=== PATIENT | female | born 2000 | race Caucasian/White ===

== ENCOUNTER 2022-08-15 04:52 | Emergency (ER) | payer BC, SELFPAY ==
[2022-08-15 05:01] VITALS: BP 93/59; PULSE 89; RESP 16; TEMP 36.6; O2SAT 98; BMI 25.1
--- NOTE | 2022-08-15 05:15 | CRLHL7_ITS ---
For Patients: As a result of the Cures Act, medical imaging exams and procedure reports are released immediately into your electronic medical record. You may view this report before your referring provider. If you have questions, please contact your health care provider. Indication: Sprain, injury Technique: Right ankle 3 views. Comparison: None. Findings: Bones: Alignment is normal. No fractures or bone lesions. Joint spaces: Unremarkable. Soft tissues: Unremarkable. Impression: No evidence of fracture or dislocation of the right ankle. Dictated by Vipul Islas MD @ 08/15/2022 5:53:05 AM (Electronically Signed)
--- NOTE | 2022-08-15 05:17 | ED.GENADULT ---
HPI - General Adult General Chief complaint: Extremity Pain/Injury, Lower Stated complaint: sprained right ankle Time Seen by Provider: 08/15/22 05:07 Source: patient Limitations: no limitations History of Present Illness HPI narrative: 21-year-old female arrives via campus security for ankle injury. Patient was ?hopping around the campus lobby like a rabbit? last night about 10 hours ago when she felt a pop in her ankle. Had some mild pain. Realize she needed to work on SA and was able to go back to her room. She was able to stand and bear weight without difficulty. She did complete her SA, did not take any medication and did go to bed. She awoke with pain in the right ankle at around 4:15 a.m. this morning. She reports that when she went to stand up the pain increased markedly causing some nausea slight lightheadedness. She hopped around after she got out of bed and sat herself down on a gra bag instead and yelled for her roommate. Roommate called campus security who recommended she be evaluated. She technically can bear weight on the ankle but it is painful. Pain is greatest at the right lateral malleolus and slightly superior to this. Denies prior significant fracture or injury, no prior surgeries. She did take 400 mg of ibuprofen this morning with no significant relief. No numbness, no swelling. Denies any other injuries. Past medical history she states is benign no major long-term health problems. Denies any use of prescription medications, denies drug allergies. Socially denies intoxication or tobacco use. ROS is notable for the generalized and musculoskeletal symptoms as above, otherwise denies times 12 systems. Related Data Home Medications Medication Instructions Recorded Confirmed No Known Home Medications 08/15/22 08/15/22 Allergies Allergy/AdvReac Type Severity Reaction Status Date / Time No Known Drug Allergies Allergy Verified 08/15/22 05:05 [facility] Social History Smoking Status: Never smoker Do you use any of these nicotine containing products: None How often do you have a drink containing alcohol: monthly or less AUDIT-C Alcohol total score: 1 Non-prescribed substance use: denies use Exam Const: Vital Signs, click to edit/add: Vital Signs - 24 hr 08/15/22 05:01 Temperature 97.8 F Pulse Rate [Left P ulse Oximeter] 89 Respiratory Rate 16 Blood Pressure [Ri ght Upper Arm] 93/59 L Pulse Oximetry 98 Oxygen Delivery Me thod Room Air Documenting provider has reviewed patient's vital signs: yes General appearance: well kempt Other: Pain seems out of proportion to exam. Anxious, refuses to move the ankle despite the fact that there is no visible deformity, swelling, bruising. HENMT: Common normals: normocephalic Head and scalp: normocephalic Mouth: oral and palatal mucosa normal Eye: Other: Eyes appear normal with normal visual tracking and gaze Resp: Common normals: normal respiratory effort Effort & inspection: able to speak in complete sentences Cardio: Common normals: regular rate, regular rhythm and peripheral pulses 2+ throughout Rate: regular rate Rhythm: regular rhythm Peripheral pulses: pulses 2+ throughout Extremity: Other: Left ankle and foot with normal range of motion, normal strength and sensation, no point bony tenderness. The right foot has no deformity, normal range of motion, no point bony tenderness. The right ankle has exquisite observed tenderness inferior and posterior true lateral malleolus but not on the malleolus itself. There is no swelling, no effusion, no bruising. She can not ARDS it significantly. Passive range of motion is completely normal. She axes though it is very difficult to reina and invert the foot but again passive range of motion is completely normal. Toes and nails are normal as well. Normal pedal pulses and capillary refill Neuro: Speech: speech normal Motor exam: no tremor noted and no movement abnormalities noted Psych: Common normals: thought process normal Appearance: well kempt Activity/motor behavior: appropriate eye contact Thought process: normal thought process Insight: insight good Judgement: judgment good Skin: Common normals: no rashes or lesions noted General skin exam: no rashes or lesions noted Course Vital Signs Vital signs: Initial Vital Signs Temperature 97.8 F 08/15/22 05:01 Temperature Source Temporal Artery Scan 08/15/22 05:01 Pulse Rate 89 08/15/22 05:01 Respiratory Rate 16 08/15/22 05:01 Blood Pressure 93/59 L 08/15/22 05:01 Blood Pressure Mean 70 08/15/22 05:01 Blood Pressure Position Sitting 08/15/22 05:01 Pulse Oximetry 98 08/15/22 05:01 Oxygen Delivery Method 08/15/22 05:01 Vital Signs Temperature 97.8 F 08/15/22 05:01 Pulse Rate 89 08/15/22 05:01 Respiratory Rate 16 08/15/22 05:01 Blood Pressure 93/59 L 08/15/22 05:01 Pulse Oximetry 98 08/15/22 05:01 Oxygen Delivery Method 08/15/22 05:01 Temperature 97.8 F 08/15/22 05:01 Pulse Rate 89 08/15/22 05:01 Respiratory Rate 16 08/15/22 05:01 Blood Pressure 93/59 L 08/15/22 05:01 Pulse Oximetry 98 08/15/22 05:01 Oxygen Delivery Method 08/15/22 05:01 Medical Decision Making MDM Narrative Medical decision making narrative: Differential diagnosis including fracture, sprain. No signs of neurovascular injury. Uneven quite meet criteria for [place] rules but pain seems very out of proportion to physical findings, because of this x-rays ordered. Tylenol 1000 mg p.o. x1 given. Update: X-rays reviewed with patient. Per my interpretation, no signs of fracture, effusion or any other worrisome signs. Recommended ankle brace. Given a pair of crutches to use until she feels like she can bear weight. She is cleared for all duties including weight-bearing at this time, wean off of the crutches in a few days as she feels better. Office visit in 2 weeks if not improving to her satisfaction in the clinic. Discharge Plan Discharge Clinical Impression: Mild sprain of right ankle Patient Disposition: Home, Self-Care Condition: Stable Instructions: Ankle Sprain (ED) Additional Instructions: You have a mild sprain to the ankle, no signs of ligament, tendon or bone injury. For pain, you may use ibuprofen 600 mg which is 3 tablets every 6 hours as needed for pain and/or Tylenol 1000 mg every 6 hours. This is 3 tablets of Tylenol at a time. Apply ice to the most painful area for 10 minutes every 4 hours while awake. We have given you a brace to use help support the ankle but it is not necessary that you wear it. You have been given crutches but again you are allowed to bear weight. Use the crutches for the next few days until you are feeling like you can support your own weight. You have no restrictions on activities, simply to comfort. You may return to class today. If your ankle is still bothersome in 2 weeks, make an appointment to be evaluated in the clinic. Activity Level: Activity as Tolerated Discharge Diet: Regular Prescriptions: No Action No Known Home Medications Stand Alone Forms: [employer] Info Instructions
[2022-08-15] MEDS: ACETAMINOPHEN 500 MG TABLET 1000 MG PO (05:18)
== END 2022-08-15 05:52 | disposition home or self-care (01) ==
LOC: ED 05:50
PROVIDERS: Emergency Provider Family Medicine
DX: S93.401A Sprain of unspecified ligament of right ankle, initial encounter (principal); X50.1XXA Overexertion from prolonged static or awkward postures, initial encounter
CPT/HCPCS: 73610; 99282; 99283; A9270

== ENCOUNTER 2023-12-02 15:10 | Outpatient (CLI) | payer BC, SELFPAY ==
--- OUTSIDE RECORDS SUMMARY | 2023-12-05 15:45 | XMS_ITS | Clinical Summary ---
Author Name Unknown Organization [facility] Address [address] [place] [address] Care Team Providers Care Special Warfare Combatant Crewman Name Role Phone Jewels Guadarrama MD Primary Care Provider +1- [phone] Allergies No known active allergies Medications Medication Sig Dispensed Refills Start Date End Date Status Multiple Vitamins-Calcium (ONE-A-DAY WOMENS ORAL)Indications:Vitami n D deficiency,Dietary restriction Give by mouth. 0 Active FLUoxetine (PROZAC) PO CAP 20 mgIndications:Anxiety and depression Give 1 Cap by mouth daily. 90 Cap 2 10/25/2020 Active Active Problems Problem Noted Date Diagnosed Date Family history of nephrolithiasis 08/01/2015 [place]-Schlatter's disease 10/21/2012 Foot pain, left 10/21/2012 Resolved [...] 10/21/2012 Vision Completed 10/25/2020, 10/17/2018 Care Teams Special Warfare Combatant Crewman Relationship Specialty Start Date End Date Jewels Guadarrama MD PCP - General Pediatrics 09/01/13
== END 2023-12-02 15:11 | disposition home or self-care (01) ==
LOC: AMB 12-05 15:43
PROVIDERS: Visit Provider Student in an Organized Health Care Education/Training Program
DX: S99.912A Unspecified injury of left ankle, initial encounter (principal); W17.89XA Other fall from one level to another, initial encounter; Y93.59 Activity, other involving other sports and athletics played individually; Y92.39 Other specified sports and athletic area as the place of occurrence of the external cause
CPT/HCPCS: A0425; A0427

== ENCOUNTER 2023-12-02 15:56 | Emergency (ER) | payer BC, SELFPAY ==
[2023-12-02] VITALS (42 sets, daily range): BP systolic 103–138; BP diastolic 60–99; PULSE 62–79; RESP 11–27; TEMP 36.6; O2SAT 95–100; BMI 28.2; BMI 25.0
--- NOTE | 2023-12-02 | XR_ITS ---
Patient: VIDA [facility] Facility:?[facility] Patient ID:?[id number] Site Patient ID:?[id number]. Site :?[id number] Study:?XRay-Extremity ANKLE 2 VIEWS-12/02/2023 4:36:03 PM Ordering Physician:[place] Final Report: INDICATION: Fell from 10+ feet. TECHNIQUE: Left ankle 2 view. COMPARISON: None. FINDINGS: There is an acute oblique fracture of the mid fibular diaphysis with apex medial and anterior angulation. The distal fracture fragment is displaced anteriorly by approximately 6 mm. There is also an acute displaced fracture of the posterior malleolus. The tibia is displaced anterior and medially relative to the talus. Mild soft tissue swelling. IMPRESSION: Acute fractures of the mid fibular diaphysis and posterior malleolus with dislocation of the tibiotalar joint. Dictated by Yi Canales MD @ 12/02/2023 7:45:59 PM Signed by:?Yi Canales MD @12/02/2023 7:45:59 PM (Electronic Signature)
--- NOTE | 2023-12-02 16:04 | XR_ITS ---
Patient: VIDA [place] [place] Facility:?[facility] Patient ID:?[id number] Site Patient ID:?[id number]. Site :?2002 Study:?XRay-Extremity Left ANKLE 2 VIEWS POST REDUCTION TTA-12/02/2023 4:36:44 PM Ordering Physician:[place] Final Report: INDICATION: Fell from 10+ feet. Postreduction. TECHNIQUE: Left ankle 2 view. COMPARISON: Earlier same day left ankle radiographs. FINDINGS: Again seen are acute fractures of the mid fibular diaphysis and posterior malleolus which are now in near anatomic alignment. Reduction of the previously seen tibiotalar dislocation. Mild soft tissue swelling. IMPRESSION: 1. Near anatomic alignment of the mid fibular and posterior malleolar fractures. 2. Reduction of the previously seen tibiotalar dislocation. Dictated by Yi Canales MD @ 12/02/2023 7:48:07 PM Signed by:?Yi Canales MD @12/02/2023 7:48:07 PM (Electronic Signature)
[2023-12-02] MEDS: 0.9 % SODIUM CHLORIDE 1000 ml 1,000 ML IV (16:15)
--- NOTE | 2023-12-02 16:23 | ED.TRAUMA ---
HPI - Trauma General Date Seen: 12/02/23 <Abdiel Pang MD - Last Filed: 12/02/23 20:51> Chief Complaint: Extremity Pain/Injury, Lower <Abdiel Pang MD - Last Filed: 12/02/23 20:51> Stated Complaint: L leg injury <Abdiel Pang MD - Last Filed: 12/02/23 20:51> Time Seen by Provider: 12/02/23 16:23 <Abdiel Pang MD - Last Filed: 12/02/23 20:51> Source: patient and EMS <Abdiel Pang MD - Last Filed: 12/02/23 20:51> Mode of arrival: EMS <Abdiel Pang MD - Last Filed: 12/02/23 20:51> Limitations: no limitations <Abdiel Pang MD - Last Filed: 12/02/23 20:51> On Arrival Trauma Team Activation: Yes <Abdiel Pang MD - Last Filed: 12/02/23 20:51> History of Present Illness HPI narrative: Patient is a very nice 23-year-old female who was rock climbing at [place] when she fell down landing on her feet, approximately 15 ft but over on her left ankle. Her left ankle was clearly to form, ambulance was called and brought her here. They gave her 10 mg of morphine in route, she has no other complaints of upper leg discomfort, abdominal discomfort pelvic discomfort chest head or neck issues. The pulse in her left foot was a little weaker according to EMS. She was placed in a splint, IV access was started and brought here. She last ate approximately at 11:30 a.m. which gives her a 4 hour window. She has had previous wisdom teeth removal with medication but no other significant surgeries. <Abdiel Pang MD - Last Filed: 12/02/23 20:51> MD complaint: fall <Abdiel Pang MD - Last Filed: 12/02/23 20:51> Onset (ago): minute(s) <Abdiel Pang MD - Last Filed: 12/02/23 20:51> Loss of Consciousness: no <Abdiel Pagn MD - Last Filed: 12/02/23 20:51> Location: other <Abdiel Pang MD - Last Filed: 12/02/23 20:51> Location - Extremities: Left: ankle <Abdiel Pang MD - Last Filed: 12/02/23 20:51> Severity: severe <Abdiel Pang MD - Last Filed: 12/02/23 20:51> Context: fall <Abdiel Pang MD - Last Filed: 12/02/23 20:51> Associated symptoms: denies other symptoms <Abdiel Pang MD - Last Filed: 12/02/23 20:51> Treatments prior to arrival: IV <Abdiel Pang MD - Last Filed: 12/02/23 20:51> Related Data Home Medications: Previous Rx's Medication Instructions Recorded ondansetron HCl 4 mg tablet 4 mg PO Q6H #10 tabs 11/30/22 <Abdiel Pang MD - Last Filed: 12/02/23 20:51> Allergies/Adverse Reactions: Allergies Allergy/AdvReac Type Severity Reaction Status Date / Time gluten AdvReac Intermediate Uncoded 11/30/22 09:56 <Abdiel Pang MD - Last Filed: 12/02/23 20:51> Review of Systems Status of ROS: Reports: 10 or more systems reviewed and unremarkable except as noted in History and below <Abdiel Pang MD - Last Filed: 12/02/23 20:51> [facility] Social History: Social History Smoking Status: Never smoker Do you use any of these nicotine containing products: None How often do you have a drink containing alcohol: monthly or less AUDIT-C Alcohol total score: 1 Non-prescribed substance use: denies use <Abdiel Pang MD - Last Filed: 12/02/23 20:51> Exam Narrative: Exam Narrative: Trauma team activation is done, and stabilization room 1, she is brought over from the [facility], her left ankle is in a pillow splint clearly deviated, with her foot valgus deviated to the left. She is able to move her toes she appears to have good cap refill but she has a weak DP pulse. Knee moves knee moves well hip moves well, there is no rotation notable, her pelvis is normal stable to rocking, her abdomen is soft there is no guarding no organomegaly, no tenderness is noted over her T-spine L-spine on palpation percussion, her chest is good air entry bilaterally, palpated and otherwise normal. With no subcutaneous air, heart sounds are normal, her neck has excellent range of motion in flexion extension lateral flexion rotation. Her pupils equal round reactive to light, GCS is 15/15, alert oriented x3, no blood from her urine no blood within her hair. <Abdiel Pang MD - Last Filed: 12/02/23 20:51> Const: Vital Signs, click to edit/add: Vital Signs - 24 hr 12/02/23 16:04 12/02/23 16:05 12/02/23 16:05 Temperature 97.9 F Pulse Rate 73 62 Pulse Rate [Left D orsalis Pedis] Pulse Rate [Pulse Oximeter] 74 Respiratory Rate 18 Blood Pressure 125/82 Blood Pressure [Ri ght Upper Arm] 125/82 Pulse Oximetry 98 99 [facility] 12/02/23 16:10 12/02/23 16:12 12/02/23 16:12 Temperature Pulse Rate 74 74 Pulse Rate [Left D orsalis Pedis] Pulse Rate [Pulse Oximeter] Respiratory Rate 17 12 12 Blood Pressure 120/99 H 120/99 H Blood Pressure [Ri ght Upper Arm] Pulse Oximetry 100 100 [facility] 12/02/23 16:14 12/02/23 16:15 12/02/23 16:17 Temperature Pulse Rate 76 75 67 Pulse Rate [Left D orsalis Pedis] Pulse Rate [Pulse Oximeter] Respiratory Rate 22 27 H Blood Pressure 138/91 H Blood Pressure [Ri ght Upper Arm] Pulse Oximetry 100 98 [facility] 12/02/23 16:20 12/02/23 16:22 12/02/23 16:28 Temperature Pulse Rate 70 68 Pulse Rate [Left D orsalis Pedis] Pulse Rate [Pulse Oximeter] Respiratory Rate 17 16 15 Blood Pressure 116/67 103/64 Blood Pressure [Ri ght Upper Arm] Pulse Oximetry 100 99 [facility] 12/02/23 16:30 12/02/23 16:31 12/02/23 16:31 Temperature Pulse Rate 72 Pulse Rate [Left D orsalis Pedis] 63 Pulse Rate [Pulse Oximeter] 62 Respiratory Rate 15 16 Blood Pressure Blood Pressure [Ri ght Upper Arm] 119/60 Pulse Oximetry [address] [facility] Room Air 12/02/23 16:32 12/02/23 16:37 12/02/23 16:37 Temperature Pulse Rate 69 72 Pulse Rate [Left D orsalis Pedis] Pulse Rate [Pulse Oximeter] Respiratory Rate 16 27 H Blood Pressure 119/80 114/90 H Blood Pressure [Ri ght Upper Arm] Pulse Oximetry [address] [facility] Room Air 12/02/23 16:38 12/02/23 16:40 12/02/23 16:42 Temperature Pulse Rate 65 72 Pulse Rate [Left D orsalis Pedis] Pulse Rate [Pulse Oximeter] Respiratory Rate 17 19 23 Blood Pressure 111/78 Blood Pressure [Ri ght Upper Arm] Pulse Oximetry [address] [facility] 12/02/23 16:45 12/02/23 16:47 12/02/23 16:50 Temperature Pulse Rate 79 71 Pulse Rate [Left D orsalis Pedis] Pulse Rate [Pulse Oximeter] Respiratory Rate 15 15 17 Blood Pressure 123/64 Blood Pressure [Ri ght Upper Arm] Pulse Oximetry [address] [facility] 12/02/23 16:52 12/02/23 16:57 12/02/23 17:00 Temperature Pulse Rate 65 69 71 Pulse Rate [Left D orsalis Pedis] Pulse Rate [Pulse Oximeter] Respiratory Rate 21 14 Blood Pressure 115/81 113/70 Blood Pressure [Ri ght Upper Arm] Pulse Oximetry [address] [facility] 12/02/23 17:02 12/02/23 17:07 12/02/23 17:10 Temperature Pulse Rate 66 71 Pulse Rate [Left D orsalis Pedis] Pulse Rate [Pulse Oximeter] Respiratory Rate 11 L 14 Blood Pressure 115/77 113/75 Blood Pressure [Ri ght Upper Arm] Pulse Oximetry [address] [facility] 12/02/23 17:15 12/02/23 17:20 12/02/23 17:30 Temperature Pulse Rate 78 Pulse Rate [Left D orsalis Pedis] Pulse Rate [Pulse Oximeter] Respiratory Rate 21 22 21 Blood Pressure Blood Pressure [Ri ght Upper Arm] Pulse Oximetry 95 96 97 Oxygen Delivery [facility] 12/02/23 17:32 12/02/23 17:40 12/02/23 17:50 Temperature Pulse Rate Pulse Rate [Left D orsalis Pedis] Pulse Rate [Pulse Oximeter] Respiratory Rate 23 16 22 Blood Pressure Blood Pressure [Ri ght Upper Arm] Pulse Oximetry 97 98 96 Oxygen Delivery [facility] 12/02/23 18:00 12/02/23 18:02 12/02/23 18:10 Temperature Pulse Rate Pulse Rate [Left D orsalis Pedis] Pulse Rate [Pulse Oximeter] Respiratory Rate 22 13 21 Blood Pressure Blood Pressure [Ri ght Upper Arm] Pulse Oximetry 97 97 96 Oxygen Delivery [facility] 12/02/23 18:20 12/02/23 18:30 12/02/23 18:32 Temperature Pulse Rate Pulse Rate [Left D orsalis Pedis] Pulse Rate [Pulse Oximeter] Respiratory Rate 18 21 14 Blood Pressure Blood Pressure [Ri ght Upper Arm] Pulse Oximetry 96 96 97 Oxygen Delivery [facility] 12/02/23 18:40 12/02/23 18:50 12/02/23 19:00 Temperature Pulse Rate Pulse Rate [Left D orsalis Pedis] Pulse Rate [Pulse Oximeter] Respiratory Rate Blood Pressure Blood Pressure [Ri ght Upper Arm] Pulse Oximetry 97 96 97 Oxygen Delivery [facility] 12/02/23 19:02 Temperature Pulse Rate Pulse Rate [Left D orsalis Pedis] Pulse Rate [Pulse Oximeter] Respiratory Rate Blood Pressure Blood Pressure [Ri ght Upper Arm] Pulse Oximetry 97 Oxygen Delivery [facility] <Abdiel Pang MD - Last Filed: 12/02/23 20:51> Vital Signs, click to edit/add: Vital Signs - 24 hr 12/02/23 16:04 12/02/23 16:05 12/02/23 16:05 Temperature 97.9 F Pulse Rate 73 62 Pulse Rate [Left D orsalis Pedis] Pulse Rate [Pulse Oximeter] 74 Respiratory Rate 18 Blood Pressure 125/82 Blood Pressure [Ri ght Upper Arm] 125/82 Pulse Oximetry 98 99 99 Oxygen Delivery [facility] Room Air 12/02/23 16:10 12/02/23 16:12 12/02/23 16:12 Temperature Pulse Rate 74 74 Pulse Rate [Left D orsalis Pedis] Pulse Rate [Pulse Oximeter] Respiratory Rate 17 12 12 Blood Pressure 120/99 H 120/99 H Blood Pressure [Ri ght Upper Arm] Pulse Oximetry 100 [address] [facility] 12/02/23 16:14 12/02/23 16:15 12/02/23 16:17 Temperature Pulse Rate 76 75 67 Pulse Rate [Left D orsalis Pedis] Pulse Rate [Pulse Oximeter] Respiratory Rate 22 27 H Blood Pressure 138/91 H Blood Pressure [Ri ght Upper Arm] Pulse Oximetry [address] [facility] 12/02/23 16:20 12/02/23 16:22 12/02/23 16:28 Temperature Pulse Rate 70 68 Pulse Rate [Left D orsalis Pedis] Pulse Rate [Pulse Oximeter] Respiratory Rate 17 16 15 Blood Pressure 116/67 103/64 Blood Pressure [Ri ght Upper Arm] Pulse Oximetry [address] [facility] 12/02/23 16:30 12/02/23 16:31 12/02/23 16:31 Temperature Pulse Rate 72 Pulse Rate [Left D orsalis Pedis] 63 Pulse Rate [Pulse Oximeter] 62 Respiratory Rate 15 16 Blood Pressure Blood Pressure [Ri ght Upper Arm] 119/60 Pulse Oximetry [address] [facility] Room Air 12/02/23 16:32 12/02/23 16:37 12/02/23 16:37 Temperature Pulse Rate 69 72 Pulse Rate [Left D orsalis Pedis] Pulse Rate [Pulse Oximeter] Respiratory Rate 16 27 H Blood Pressure 119/80 114/90 H Blood Pressure [Ri ght Upper Arm] Pulse Oximetry 99 [address] [facility] Room Air 12/02/23 16:38 12/02/23 16:40 12/02/23 16:42 Temperature Pulse Rate 65 72 Pulse Rate [Left D orsalis Pedis] Pulse Rate [Pulse Oximeter] Respiratory Rate 17 19 23 Blood Pressure 111/78 Blood Pressure [Ri ght Upper Arm] Pulse Oximetry [address] [facility] 12/02/23 16:45 12/02/23 16:47 12/02/23 16:50 Temperature Pulse Rate 79 71 Pulse Rate [Left D orsalis Pedis] Pulse Rate [Pulse Oximeter] Respiratory Rate 15 15 17 Blood Pressure 123/64 Blood Pressure [Ri ght Upper Arm] Pulse Oximetry 100 100 100 Oxygen Delivery [facility] 12/02/23 16:52 12/02/23 16:57 12/02/23 17:00 Temperature Pulse Rate 65 69 71 Pulse Rate [Left D orsalis Pedis] Pulse Rate [Pulse Oximeter] Respiratory Rate 21 14 Blood Pressure 115/81 113/70 Blood Pressure [Ri ght Upper Arm] Pulse Oximetry 99 100 99 Oxygen Delivery [facility] 12/02/23 17:02 12/02/23 17:07 12/02/23 17:10 Temperature Pulse Rate 66 71 Pulse Rate [Left D orsalis Pedis] Pulse Rate [Pulse Oximeter] Respiratory Rate 11 L 14 Blood Pressure 115/77 113/75 Blood Pressure [Ri t Upper Arm] Pulse Oximetry 98 96 96 Oxygen Delivery [facility] 12/02/23 17:15 12/02/23 17:20 12/02/23 17:30 Temperature Pulse Rate 78 Pulse Rate [Left D orsalis Pedis] Pulse Rate [Pulse Oximeter] Respiratory Rate 21 22 21 Blood Pressure Blood Pressure [Ri t Upper Arm] Pulse Oximetry 95 96 97 Oxygen Delivery [facility] 12/02/23 17:32 12/02/23 17:40 12/02/23 17:50 Temperature Pulse Rate Pulse Rate [Left D orsalis Pedis] Pulse Rate [Pulse Oximeter] Respiratory Rate 23 16 22 Blood Pressure Blood Pressure [Ri t Upper Arm] Pulse Oximetry 97 98 96 Oxygen Delivery [facility] 12/02/23 18:00 12/02/23 18:02 12/02/23 18:10 Temperature Pulse Rate Pulse Rate [Left D orsalis Pedis] Pulse Rate [Pulse Oximeter] Respiratory Rate 22 13 21 Blood Pressure Blood Pressure [Ri t Upper Arm] Pulse Oximetry 97 97 96 Oxygen Delivery [facility] 12/02/23 18:20 12/02/23 18:30 12/02/23 18:32 Temperature Pulse Rate Pulse Rate [Left D orsalis Pedis] Pulse Rate [Pulse Oximeter] Respiratory Rate 18 21 14 Blood Pressure Blood Pressure [Ri t Upper Arm] Pulse Oximetry 96 96 97 Oxygen Delivery [facility] 12/02/23 18:40 12/02/23 18:50 12/02/23 19:00 Temperature Pulse Rate Pulse Rate [Left D orsalis Pedis] Pulse Rate [Pulse Oximeter] Respiratory Rate Blood Pressure Blood Pressure [Ri ght Upper Arm] Pulse Oximetry 97 96 97 Oxygen Delivery [facility] 12/02/23 19:02 Temperature Pulse Rate Pulse Rate [Left D orsalis Pedis] Pulse Rate [Pulse Oximeter] Respiratory Rate Blood Pressure Blood Pressure [Ri ght Upper Arm] Pulse Oximetry 97 Oxygen Delivery [facility] <Mo Posadas MD - Last Filed: 12/02/23 16:29> Documenting provider has reviewed patient's vital signs: yes <Abdiel Pang MD - Last Filed: 12/02/23 20:51> Course Course ED Course: Clearly given the injury, the foot had to be relocated. Consent was obtained from the patient, over the risks benefits and side effects of conscious sedation did the medication along with managing the airway. Normal protocol was followed. Please see that dictation, x-ray showed dislocated distal tibial/navicular with a posterior fracture component of tibia noted. Along with the midshaft obliquely oriented fibular fracture. With relocation, she had a strong DP pulse. Her foot show looked a lot better. She was placed in a stirrup splint for now. And likely a long leg splint will be also applied. Orthopedics will be consulted. <Abdiel Pang MD - Last Filed: 12/02/23 20:51> Consultations Consultation #1: consultation with Donna CAIN for Orthopedics, and she spoke to who agreed that surgical need for ankle, and they will see patient tommorow in [place]. <Abdiel Pang MD - Last Filed: 12/02/23 20:51> Vital Signs Vital signs: Initial Vital Signs Pulse Rate 73 12/02/23 16:04 Blood Pressure 125/82 12/02/23 16:04 Blood Pressure Mean 96 12/02/23 16:04 Pulse Oximetry 98 12/02/23 16:04 Vital Signs Pulse Rate 73 12/02/23 16:04 Blood Pressure 125/82 12/02/23 16:04 Pulse Oximetry 98 12/02/23 16:04 Temperature 97.9 F 12/02/23 16:05 Pulse Rate 78 12/02/23 17:15 Respiratory Rate 14 12/02/23 18:32 Blood Pressure 113/75 12/02/23 17:07 Pulse Oximetry 97 12/02/23 19:02 Oxygen Delivery Method Room Air 12/02/23 16:37 <Abdiel Pang MD - Last Filed: 12/02/23 20:51> Initial Vital Signs Pulse Rate 73 12/02/23 16:04 Blood Pressure 125/82 12/02/23 16:04 Blood Pressure Mean 96 12/02/23 16:04 Pulse Oximetry 98 12/02/23 16:04 Vital Signs Pulse Rate 73 12/02/23 16:04 Blood Pressure 125/82 12/02/23 16:04 Pulse Oximetry 98 12/02/23 16:04 Temperature 97.9 F 12/02/23 16:05 Pulse Rate 78 12/02/23 17:15 Respiratory Rate 14 12/02/23 18:32 Blood Pressure 113/75 12/02/23 17:07 Pulse Oximetry 97 12/02/23 19:02 Oxygen Delivery Method Room Air 12/02/23 16:37 <Mo Posadas MD - Last Filed: 12/02/23 16:29> Medications Administered Medications: Discontinued Medications Generic Name Dose Route Start Last Admin Trade Name Freq PRN Reason Stop Dose Admin Hydromorphone HCl 0.5 mg 12/02/23 16:51 12/02/23 16:35 Hydromorphone 0.5 Mg/0.5 Ml Inj IVP 12/02/23 16:52 0.5 mg ONCE ONE Administration Sodium Chloride 1,000 mls @ 1,000 mls/hr 12/02/23 17:00 12/02/23 16:15 0.9 % Sodium Chloride 1000 Ml IV 12/02/23 17:59 1,000 mls/hr .Q1H SAY Administration Oxycodone/Acetaminophen 1 tab 12/02/23 18:27 12/02/23 18:33 Oxycodone/Apap 5-325 Tablet PO 12/02/23 18:28 1 tab ONCE ONE Administration Propofol 100 mg 12/02/23 16:51 12/02/23 17:04 Propofol 10 Mg/Ml Inj IVP 12/02/23 16:52 100 mg ONCE ONE Administration <Abdiel Pang MD - Last Filed: 12/02/23 20:51> Discontinued Medications Generic Name Dose Route Start Last Admin Trade Name Freq PRN Reason Stop Dose Admin Hydromorphone HCl 0.5 mg 12/02/23 16:51 12/02/23 16:35 Hydromorphone 0.5 Mg/0.5 Ml Inj IVP 12/02/23 16:52 0.5 mg ONCE ONE Administration Sodium Chloride 1,000 mls @ 1,000 mls/hr 12/02/23 17:00 12/02/23 16:15 0.9 % Sodium Chloride 1000 Ml IV 12/02/23 17:59 1,000 mls/hr .Q1H SAY Administration Oxycodone/Acetaminophen 1 tab 12/02/23 18:27 12/02/23 18:33 Oxycodone/Apap 5-325 Tablet PO 12/02/23 18:28 1 tab ONCE ONE Administration Propofol 100 mg 12/02/23 16:51 12/02/23 17:04 Propofol 10 Mg/Ml Inj IVP 12/02/23 16:52 100 mg ONCE ONE Administration <Mo Posadas MD - Last Filed: 12/02/23 16:29> MDM - Trauma MDM Narrative Medical decision making narrative: I was asked to assist in sedation for this patient who has a fracture dislocation of her left ankle. The patient did have food a few hours prior to arrival. She does not have any other health concerns. After acquiring informed consent the patient received initially 80 mg of propofol and then another 40 mg for adequate sedation in order to reduce the ankle in place a splint. The patient tolerated this procedure well. She did not need any interventions for her breathing and vital signs remained reassuring. Dr. Juliano Posadas <Mo Posadas MD - Last Filed: 12/02/23 16:29> Medical Records Attestation: I reviewed the patient's medical records. <Abdiel Pang MD - Last Filed: 12/02/23 20:51> Imaging Data ankle xray : Attestation: I have reviewed the pertinent imaging results. <Abdiel Pang MD - Last Filed: 12/02/23 20:51> My impression: ankle xray shows fracure dislocation of the ankle, with associated fibular fracture. <Abdiel Pang MD - Last Filed: 12/02/23 20:51> Discharge Plan Discharge Clinical Impression: Ankle fracture, bimalleolar, closed, Closed dislocation of ankle, Closed left fibular fracture <Abdiel Pang MD - Last Filed: 12/02/23 20:51> Patient Disposition: Home w/ Parent or Adult <Abdiel Pang MD - Last Filed: 12/02/23 20:51> Condition: Stable <Abdiel Pang MD - Last Filed: 12/02/23 20:51> Instructions: Ankle Fracture (ED), Leg Fracture (ED), Crutch Instructions (ED), Closed Reduction Internal Fixation of Leg Fracture in Adults (DC), ORIF of a Leg Fracture (DC), Ankle Dislocation (ED) <Abdiel Pang MD - Last Filed: 12/02/23 20:51> Additional Instructions: Home rest nonweightbearing on left leg, with crutches, elevation as much as possible, as this will reduce swelling and help healing both pre and post surgery. They will call you tomorrow and set you up for a visit tomorrow morning with Orthopedics, you do not need to be fasting going into the appointment as the surgery will likely be on Saturday. Take your pain medication, obviously avoid alcohol with this. Instymeds for percocet. <Abdiel Pang MD - Last Filed: 12/02/23 20:51> Activity Level: No Weight Bearing <Abdiel Pang MD - Last Filed: 12/02/23 20:51> No Weight Bearing <Mo Posadas MD - Last Filed: 12/02/23 16:29> Discharge Diet: Regular <Abdiel Pang MD - Last Filed: 12/02/23 20:51> Regular <Mo Posadas MD - Last Filed: 12/02/23 16:29> Prescriptions: No Action ondansetron HCl 4 mg tablet 4 mg PO Q6H Qty: 10 0RF <Abdiel Pang MD - Last Filed: 12/02/23 20:51> Follow Up/Referrals: Mo Jorge MD [Staff Physician] - Provider,Not a Local [Primary Care Provider] - <Abdiel Pang MD - Last Filed: 12/02/23 20:51> Stand Alone Forms: My[facility] Info Instructions <Abdiel Pang MD - Last Filed: 12/02/23 20:51> Procedures Orthopedic Joint Reduction Joint #1: Written consent by: patient <Abdiel Pang MD - Last Filed: 12/02/23 20:51> Time Out Performed: Yes <Abdiel Pang MD - Last Filed: 12/02/23 20:51> Side: left <Abdiel Pang MD - Last Filed: 12/02/23 20:51> Joint Reduction Location: ankle <Abdiel Pang MD - Last Filed: 12/02/23 20:51> Manipulation used?: Yes <Abdiel Pang MD - Last Filed: 12/02/23 20:51> Analgesia: procedural sedation <Abdiel Pang MD - Last Filed: 12/02/23 20:51> Technique used: direct manipulation <Abdiel Pang MD - Last Filed: 12/02/23 20:51> Post-reduction neuro vascular exam: intact <Abdiel Pang MD - Last Filed: 12/02/23 20:51> Post Reduction X-Ray Obtained: Yes <Abdiel Pang MD - Last Filed: 12/02/23 20:51> Post Reduction X-Ray Results: reduced <Abdiel Pang MD - Last Filed: 12/02/23 20:51> Splint Applied: Yes <Abdiel Pang MD - Last Filed: 12/02/23 20:51> Patient Tolerated Procedure: well and no complications <Abdiel Pang MD - Last Filed: 12/02/23 20:51> Orthopedic Splinting/Casting Injury #1: Side: left <Abdiel Pang MD - Last Filed: 12/02/23 20:51> Lower Extremity Injury Location: ankle <Abdiel Pang MD - Last Filed: 12/02/23 20:51> Lower extremity immobilizer: stirrup splint <Abdiel Pang MD - Last Filed: 12/02/23 20:51> Applied by clinician: / <Abdiel Pang MD - Last Filed: 12/02/23 20:51> Other Orthopedic Equipment: crutches <Abdiel Pang MD - Last Filed: 12/02/23 20:51> Conclusion: patient tolerated procedure <Abdiel Pang MD - Last Filed: 12/02/23 20:51> Additional Comments: pre vascular exam showed a decrease pulse in the DP artery. post procedure their is excellent improvement. Patient is splinted and watched for 1.5 hrs and recheck of the pulse and neuro integrity shows continued excellent neurovascular status. <Abdiel Pang MD - Last Filed: 12/02/23 20:51>
[2023-12-02] MEDS: HYDROmorphone 0.5 mg/0.5 ml inj IVP (16:35)
[2023-12-02] MEDS: PROPOFOL 10 MG/ML INJ 100 MG IVP (17:04)
--- OUTSIDE RECORDS SUMMARY | 2023-12-02 17:13 | XMS_ITS | Clinical Summary ---
Author Name Unknown Organization [facility] Address [address] [place] [id number] Care Team Providers Care Lithograph Press Operator Tinware Name Role Phone Jewels Guadarrama MD Primary Care Provider [phone]- [phone] Allergies No known active allergies Medications Medication Sig Dispensed Refills Start Date End Date Status Multiple Vitamins-Calcium (ONE-A-DAY WOMENS ORAL)Indications:Vitami n D deficiency,Dietary restriction Give by mouth. 0 Active FLUoxetine (PROZAC) PO CAP 20 mgIndications:Anxiety and depression Give 1 Cap by mouth daily. 90 Cap 2 10/25/2020 Active Active Problems Problem Noted Date Diagnosed Date Family history of nephrolithiasis 08/01/2015 [place]-Schlatter's disease 10/21/2012 Foot pain, left 10/21/2012 Resolved Problems Problem Noted Date Diagnosed Date Resolved Date BMI (body mass index), pedia tric, 95-99% for age 0108/01/2015 12/25/2017 BMI (body mass index), pedia tric, 85% to less than 95% for age 0410/21/2012 08/01/2015 Dry skin 10/31/2009 03/05/2011 Immunizations Name Administration Dates Next Due DTaP (Infanrix) 11/09/2008, 4,05/06/2003,02/05,2002 HPV4 (Gardasil) 01/12/2015,05/10/2014,10/26/2013 HepA 10/18/2005,10/10/2004 Hib-HepB (Comvax) 10/18/2003,02/05/2003,12/09/19 03 IPV 11/09/2008, 4,02/05/2003,12/08 Influenza IIV3 PF 04/17/2004,06/08/2003,05/06/20 03 Influenza LAIV3 06/24/2012,03/05/2011 Influenza LAIV4 07/13/2015,05/10/2014,05/22/2013 MCV4 (Menactra) 10/17/2018,10/26/2013 MMR 11/09/2008,02/02/2004 MMRV 10/16/2006 Meningococcal B, Fully Recom b (Trumenba) 02/09/2021 PCV7 (Prevnar) 04/17/2004, 3,02/05/2003,12/08 Tdap 10/26/2013 Varicella 10/20/2007,02/02/2004 influenza IIV4 PF 05/26/2018,06/07/2017,05/08/20 16 Family History Relation Status Comments Brother Alive Social History Tobacco Use Types Packs/Day Years Used Date Smoking Tobacco: Never Smokeless Tobacco: Never Alcohol Use Standard Drinks/Week Comments Not Asked 0 (1 standard drink = 0.6 oz pur e alcohol) Sex and Gender Information Value Date Recorded Sex Assigned at Not on file Gender Identity Not on file Sexual Orientation Not on file Last Filed Vital Signs Vital Sign Reading Time Taken Comments Blood Pressure 112/74 10/25/2020 11:51 AM CDT Pulse 79 10/25/2020 11:51 AM CDT Temperature 36.6 ??C (97.9 ??F) 02/09/2021 8:33 AM CD T Respiratory Rate - - Oxygen Saturation 98% 05/08/2016 3:29 PM CDT Inhaled Oxygen Concentration - - Weight 66.1 kg (145 lb 12.8 oz) 021 11:51 AM CDT Height 168.3 cm (5' 6.25) 10/25/2020 1 1:51 AM CDT Body Mass Index 23.36 10/25/2020 11:51 AM CDT Plan of Treatment Health Maintenance Due Date Last Done Comments HIV (blood) 2018 Men B (2 of 2 - Risk Trumenb a 2-dose series) 08/12/2021 02/09/2021 TB Qnr 10/25/2021 10/25/2020, 10/17/2018 Covid (1 2022-24 season) 2023 DTaP / Tdap (7 - Td or Tdap) 10/27/202301/2014, 11/09/2008, 04/17/2004, Additional history exists IIV4 / LAIV (Season Ended) 03/22/202409/09, 05/26/2018, 06/07/2017, Additional history exists HepB Completed 10/18/2003, 01/19, 2002 HepA Completed 10/18/2005, 10/10/2004 MMR Completed 11/09/2008, 09/20, 02/02/2004 HPV9 Completed 01/12/2015, 04/22, 10/26/2013 MCV4 Completed 10/17/2018, 10/26/2013 Hearing (include 6000/8000 Hz) Completed 10/25/2020 , 10/17/2018 Lipid (blood) Completed 10/25/2020, 12/2020, 10/21/2012 Vision Completed 10/25/2020, 10/17/2018 Care Teams Lithograph Press Operator Tinware Relationship Specialty Start Date End Date Jewels Guadarrama MD PCP - General Pediatrics 09/01/13
[2023-12-02] MEDS: OxyCODONE/APAP 5-325 TABLET 1 TAB PO (18:33)
== END 2023-12-02 19:44 | disposition home or self-care (01) ==
PROVIDERS: Emergency Provider Family Medicine
DX: S82.842A Displaced bimalleolar fracture of left lower leg, initial encounter for closed fracture (principal); Y93.31 Activity, mountain climbing, rock climbing and wall climbing
CPT/HCPCS: 29515; 73600; 96374; 99284; 99291; A9270; G0390; J1170; J2704; J7030

== ENCOUNTER 2023-12-04 11:31 | Day surgery (SDC) | payer BC, SELFPAY ==
[2023-12-04] VITALS (14 sets, daily range): BP systolic 99–116; BP diastolic 52–87; PULSE 64–87; RESP 12–16; TEMP 36.1–36.7; O2SAT 94–99; BMI 25.9
--- OUTSIDE RECORDS SUMMARY | 2023-12-04 11:36 | XMS_ITS | Clinical Summary ---
Author Name Unknown Organization [facility] Address [address] [place] [address] Care Team Providers Care Sap Data Analyst Name Role Phone Jewels Guadarrama MD Primary Care Provider +1- [phone] Allergies No known active allergies Medications Medication Sig Dispensed Refills Start Date End Date Status Multiple Vitamins-Calcium (ONE-A-DAY WOMENS ORAL)Indications:Vitami n D deficiency,Dietary restriction Give by mouth. 0 Active FLUoxetine (PROZAC) PO CAP 20 mgIndications:Anxiety and depression Give 1 Cap by mouth daily. 90 Cap 2 10/25/2020 Active Active Problems Problem Noted Date Diagnosed Date Family history of nephrolithiasis 08/01/2015 [place]-Schlatter's disease 10/21/2012 Foot pain, left 10/21/2012 Resolved [...] 10/21/2012 Vision Completed 10/25/2020, 10/17/2018 Care Teams Sap Data Analyst Relationship Specialty Start Date End Date Jewels Guadarrama MD PCP - General Pediatrics 09/01/13
[2023-12-04 12:02] LABS: Ur HCG Qualitative* Negative (Negative)
[2023-12-04] MEDS: LACTATED RINGERS 1000 ML 1,000 ML 100 ML IV ×2 (12:34→16:01)
[2023-12-04] MEDS: SODIUM CHLORIDE 0.9 % (FLUSH) 10 ML SYRINGE IVF (12:34)
--- NOTE | 2023-12-04 13:01 | W.PM.H&PU ---
History & Physical Update History & Physical Update H&P Reviewed and patient assessed: No changes noted
--- NOTE | 2023-12-04 13:01 | PM.ORPRC ---
Procedure Note Date of procedure: 12/04/23 Procedure: PREOPERATIVE DIAGNOSES: 1. Left ankle syndesmosis disruption 2. Left posterior malleolus fracture 3. Left fibula shaft fracture POSTOPERATIVE DIAGNOSES: 1. Left ankle syndesmosis disruption 2. Left posterior malleolus fracture 3. Left fibula shaft fracture PROCEDURE: 1. Left ankle syndesmosis reduction with internal fixation. 2. Intraoperative fluoroscopy <53 minutes (CPT CODE 7600) SURGEON: Juliano Jorge MD MILIEU COUNSELOR: Riddhi Bonilla P.A.-C.; Of note, an assistant director of public works was critical for this case to aide in patient positioning, leg manipulation, tissue retraction, closure, and splinting. ANESTHESIA: Spinal with popliteal nerve block IMPLANTS: Arthrex 2 hole buttress plate with syndesmosis tight rope x2. TOURNIQUET: 41 minutes at 250 mmHg. INDICATIONS: The patient is a pleasant 23-year-old female who sustained a right ankle fracture dislocation that included disruption of the syndesmosis 2 days ago. Recommendations sub submitted for surgical intervention consisting of left ankle syndesmosis reduction and internal fixation with possible open reduction internal fixation to stabilize the ankle and allow for anatomic healing. FINDINGS: Closed, syndesmosis disruption with small, displaced posterior malleolus fracture and displaced oblique fibular shaft fracture. After reduction and syndesmosis fixation, the ankle and syndesmosis were stable. The small posterior malleolus fracture and fibular shaft fractures were anatomically reduced. PROCEDURE: Following a thorough discussion of the risks, benefits, and alternatives to surgery; informed consent was obtained, and the operative extremity was marked. Regional nerve block was performed by anesthesia staff . The patient was then brought to the operating room, where spinal anesthesia was administered. She was then placed supine on the operating table. 1 g IV Ancef was administered preoperatively for prophylaxis . The operative extremity was then prepped and draped in the appropriate sterile fashion . A surgical time-out was performed confirming patient identity, surgical site, and surgical procedure. The operative extremity was elevated and exsanguinated, and the tourniquet inflated to 250 mmHg. A longitudinal incision measuring approximately 5 cm was made over the distal fibula starting just proximal to the ankle joint and extending proximally. Sharp incision was carried through skin and subcutaneous tissues, while protecting any crossing neurologic structures. The lateral aspect of the fibula was identified and 2 hole buttress plate was temporarily fixed to the fibula with BB tacks. Plate was positioned with a distal hole 2 cm proximal to the tibial plafond. A small stab incision was then placed medially over the medial malleolus for placement of a large bob articular clamp. The syndesmosis was reduced and held in position with gentle pressure on the pair to kill a clamp. Syndesmosis reduction was confirmed on AP and lateral planes. In the lateral plane the posterior malleolus was also confirmed to be in anatomic position. Next, guide pin for the syndesmosis tight rope was drilled through the proximal hole of the buttress plate across the fibula and distal tibia in a 30 degree posterior to anterior direction correct position of this pin was confirmed with fluoroscopy and pin was then overdrilled with the appropriate drill. Pin was then removed and syndesmosis tight rope was placed through this drill hole and flipped on the medial aspect of the tibia. Syndesmosis tight rope was then tensioned and bringing the button securely against the buttress plate. A 2nd syndesmosis tight rope was placed through the more distal hole in the buttress plate. This was also drilled parallel to the joint line but in a divergent direction from the 1st syndesmosis tight rope. This was also tensioned securing the button to the lateral buttress plate. Peritoneal a clamp and BB tack were removed. Remnant sutures were cut and removed. Final fluoroscopic images in AP and lateral planes were performed which confirmed appropriate position of the buttress plate and syndesmosis tight rope buttons. Fluoroscopic imaging also confirmed anatomic reduction of the syndesmosis, posterior malleolus fracture, and fibular shaft fracture. A lateral rotation stress image confirmed that there was no widening of the syndesmosis and mortise remained symmetric. At this stage, the wound was thoroughly irrigated with normal saline. Deep subcutaneous tissues were closed over the plate with #0 Vicryl [id number] interrupted sutures. The tourniquet was deflated. Total tourniquet time was 41 minutes. Subcutaneous tissues were closed with 2-0 Vicryl for the subcutaneous tissues, 3-0 Monocryl for the subcuticular layers completed the closure. Exofin was applied followed by application of sterile dressings and a bulky Keller splint. The patient was awoken from anesthesia and transferred to the PACU in stable condition. PLAN: 1. Ice and elevate operative extremity. 2. Keep splint clean and dry 3. Tylenol and oxycodone for pain as needed. 4. Nonweightbearing operative extremity. 5. Discharge home. 6. Follow up in orthopedic clinic in 10-14 days for: -splint removal and wound check. -repeat x-rays of the left ankle at that visit. -convert to removable Cam boot -advance to touchdown weight-bearing
[2023-12-04] MEDS: MIDAZOLAM HCL 1 MG/ML inj IVP (13:03)
[2023-12-04] MEDS: fentaNYL 100 MCG/2 ML inj IVP (13:03)
--- NOTE | 2023-12-04 13:23 | SUR.PREOP ---
TIME?OUT:?1303 PT/RN/MDA?VERIFICATION?OF?SURGICAL?SITE,?PROCEDURE,?AND?CONSENT OBTAINED?PRIOR?TO?INVASIVE?PROCEDURE.
[2023-12-04] MEDS: CEFAZOLIN 1 GM inj IVP (13:30)
--- NOTE | 2023-12-04 13:48 | XR_ITS ---
Patient: [facility] Facility:?[facility] Patient ID:?[id number] Site Patient ID:?[id number]. Site :?[id number] Study:?XRay-Extremity Left Ankle w/ c-arm-12/04/2023 2:46:32 PM Ordering Physician:?Mo Jorge Final Report: Indication: Ankle syndesmosis left Technique: Seven fluoroscopic images of the left ankle. Fluoroscopic time 61.2 seconds. IMPRESSION: Fluoroscopic guidance for syndesmotic fusion. Dictated by Rodney Ross MD @ 12/05/2023 11:15:20 AM Signed by:?Rodney Ross MD @12/05/2023 11:15:20 AM (Electronic Signature)
--- NOTE | 2023-12-04 14:05 | P.NB_ITS ---
Nerve Block Nerve Block Time Seen by Provider: 13:03 Date Seen: 12/04/23 Type of block requested by surgeon for post-operative analgesia: popliteal Side: left Time out performed: Yes Verification of patient name: Yes Verification of date of : Yes Site marking: site marked Name of person performing procedure: Vu Continuous monitoring Was continuous monitoring of O2 sat, B/P, manager of transportation, recorded every 15 minutes?: Yes Procedure Checklist: sterile prep, needles and gloves Ultrasound guided. Images saved: Yes Medications given in 5ml increments after negative aspiration: Ropivicaine %: 0.5 mL: 20 Needle gauge: 22 Patient tolerated procedure well: Yes Additional comments: Needle noted adjacent to nerve Block Charges Block Charge (with Pro Fee): Sciatic Nerve Use of Ultrasound Machine for Block: Yes- US Guidance/pain block
--- NOTE | 2023-12-04 15:35 | W.ANESCHARGE ---
Anesthesia Charges Start Date/Time Anesthesia Start Date: 12/04/23 Anesthesia Start Time: 13:15 Stop Date/Time Anesthesia Stop Date: 12/04/23 Anesthesia Stop Time: 15:21
[2023-12-04] MEDS: OxyCODONE/APAP 5-325 TABLET PO (16:30)
== END 2023-12-04 17:28 | disposition home or self-care (01) ==
PROVIDERS: Visit Provider Orthopaedic Surgery
PROC: (CPT 27829; principal; 2023-12-04 13:00)
DX: S93.432A Sprain of tibiofibular ligament of left ankle, initial encounter (principal); S82.892A Other fracture of left lower leg, initial encounter for closed fracture; S82.62XA Displaced fracture of lateral malleolus of left fibula, initial encounter for closed fracture; G89.18 Other acute postprocedural pain
CPT/HCPCS: 27829; 27792; 01480; 64445; 73610; 76000; 76942; 81025; A9270; C1713; J0690; J1100; J2250; J2405; J2704; J2795; J3010; J7120